=== PATIENT | female | born 1995 | race Caucasian/White ===

== ENCOUNTER 2019-04-28 05:43 | Emergency (ER) | payer OTHER ==
[~2019-04-28] VITALS: Ht 157.5 cm; Wt 57.7 kg
[2019-04-28] MEDS ORDERED: LEVOTAB19 PO (05:50)
[2019-04-28 06:18] LABS: BASO % 0.3 % (0.0-1.0); EOS % 0.3 % (0.0-3.0); HEMATOCRIT 43.7 % (36.0-47.0); HEMOGLOBIN 14.4 g/dl (12.0-15.5); LYMPH # 1.1 10^3/uL (1.5-5.0); LYMPH % 6.9 % (24.0-44.0); MEAN CORPUSCULAR HEMOGLOBIN 28.5 pg (27.0-33.0); MEAN CORPUSCULAR VOLUME 86.4 fl (80.0-96.0); MONO % 6.6 % (0.0-5.0); NEUTROPHILS # 13.2 10^3/uL (1.5-8.5); NEUTROPHILS % 85.5 % (36.0-66.0); PLATELET COUNT, AUTOMATED 247 10^3/uL (150-450); RED BLOOD COUNT 5.06 10^6/uL (4.00-5.40); WHITE BLOOD COUNT 15.4 10^3/uL (4.0-10.0)
[2019-04-28] MEDS ORDERED: METOCLOPRAMIDE INJ 10MG/2ML VIAL (J2765) IV ONE (06:30)
[2019-04-28] MEDS ORDERED: MORPHINE 4 MG/ML 1ML VIAL/SYRINGE (J2270) IV ONE (06:30)
[2019-04-28] MEDS ORDERED: NS 1,000 ML IV ONE (06:30)
[2019-04-28 06:50] LABS: ALT/SGPT 51 U/L (12-78); BILIRUBIN,DIRECT 0.1 MG/DL (0.0-0.2); BILIRUBIN,TOTAL 0.3 MG/DL (0.2-1.0); LIPASE 121 U/L (73-393); TOTAL PROTEIN 7.1 GM/DL (6.4-8.2)
[2019-04-28 06:56] LABS: HCG, SERUM QUALITATIVE NEGATIVE (NEGATIVE)
--- NOTE | 2019-04-28 07:43 | REPVR ---
PROCEDURE INFORMATION: Exam: US Abdomen Limited, Right Upper Quadrant Exam date and time: 04/28/2019 7:26 AM Age: 23 years old Clinical indication: Abdominal pain; Flank; Right upper quadrant (ruq); Additional info: Biliary/gb eval TECHNIQUE: Imaging protocol: Real-time ultrasound of the abdomen with image documentation. Examination was focused on the right upper quadrant. COMPARISON: No relevant prior studies available. FINDINGS: Liver: The liver appears normal. Gallbladder: The gallbladder appears normal with a normal wall thickness of 1.5 mm. A small junctional mucosal fold normal variant is seen at the neck of the gallbladder. Common bile duct: The bile ducts are normal. The common bile duct measures 3 mm in diameter. Pancreas: The pancreas appears within normal limits. Right kidney: The right kidney appears normal measuring 10.2 x 5.5 x 4.3 cm. Intraperitoneal space: No free fluid seen within the right upper quadrant abdomen. IMPRESSION: 1. The liver appears normal. 2. The gallbladder appears normal with a normal wall thickness of 1.5 mm. A small junctional mucosal fold normal variant is seen at the neck of the gallbladder. 3. The bile ducts are normal. The common bile duct measures 3 mm in diameter. Electronically signed by: Hansel Sosa On 04/28/2019 07:42:47 AM
[2019-04-28] MEDS ORDERED: ISOVUE-370 76% 100ML VIAL (Q9967) As Ordered ONE (08:14)
[2019-04-28] MEDS: GASTROGRAFIN SOLUTION 30ML PO SCH ×2 (08:50→09:20)
[2019-04-28] MEDS ORDERED: ONDANSETRON 4MG/2ML VIAL (J2405) IV ONE (09:00)
--- NOTE | 2019-04-28 11:13 | REP ---
CT abdomen and pelvis with IV and oral contrast: History: Appendicitis. CT contrast dose: 100 mL of intravenous Isovue [address] findings: Digital preliminary business lawyer radiograph is unremarkable. Nonspecific large and small bowel gas pattern question mild ileus. The lung bases are clear on axial CT images. The liver and the spleen are normal in size and homogeneous in texture. The gallbladder is unremarkable. No abnormality is noted in the pancreas. Normal adrenal glands are seen bilaterally. The kidneys enhance symmetrically and are morphologically intact. The left renal artery is duplicated. No retroperitoneal mass or adenopathy is seen. Small and large bowel loops appear morphologically intact in the upper abdomen. Pelvic CT images demonstrate a normal non-inflamed appendix in the right lower quadrant just medial to the cecum. The uterus is tipped to the right and there is a septated appearing cystic lesion in the left adnexa measuring up to 8 cm in greatest dimension by 6 cm by 6 cm. There appears to be a small amount of adjacent cul-de-sac fluid. Urinary bladder is empty but intact in appearance. No abdominal wall defect is seen. Bone window settings show no bony destructive lesion. Impression: 8 cm cystic lesion left ovary. Normal appendix. No other abnormality. Electronically Signed by Pedro Irving MD 04/28/2019 02:30 P
[2019-04-28 11:21] VITALS: BP 116/72
--- NOTE | 2019-04-29 10:55 | ED PDOC ---
Post-Departure Follow-Up ft be[facility] faxed formal report of ct abd/p for fu Kg Douglass MD Apr 29, 2019 10:55
== END 2019-04-28 11:35 | disposition home or self-care (01) ==
LOC: M ED 05:43
DX: R10.11 Right upper quadrant pain (principal); N83.202 Unspecified ovarian cyst, left side; R11.10 Vomiting, unspecified; Z88.0 Allergy status to penicillin; Z79.3 Long term (current) use of hormonal contraceptives
CPT/HCPCS: 36415; 74177; 76705; 80047; 80076; 81001; 83690; 84702; 84703; 85025; 96361; 96374; 96375; 99284; J2270; J2405; J2765; Q9963; Q9967

== ENCOUNTER → 2019-05-18 | Outpatient (CLI) | payer OTHER ==
[~2019-05-18] MED LIST: LEVOTAB19 PO
--- NOTE | 2019-05-18 09:47 | REP ---
Clinical: Left lower quadrant pain. Technique: Transabdominal pelvic ultrasound followed by transvaginal examination for better evaluation of the endometrium and adnexa with color Doppler evaluation of the ovaries. Findings: Bladder is unremarkable and measures 7.5 x 2.5 x 4.2 cm. Normal anteverted uterus measures 7.0 x 3.0 x 3.9 cm . The endometrial complex measures 4.0 mm thickness. No discrete uterine or endometrial abnormalities are appreciated. Bilateral ovaries are normal in appearance and vascularity without evidence for torsion. Right ovary measures 2.9 x 1.6 x 2.3 cm ; R I = 0.35 . Left ovary measures a 0.4 x 1.8 x 2.4 cm with 1.5 cm physiologic cyst / follicle ; R I = 0.55 . No pelvic fluid or adnexal mass lesion . Impression: 1. Essentially normal pelvic ultrasound. 2. 1.5 cm left ovarian cyst likely physiologic/dominant follicle. Electronically Signed by Sathish Brar MD 05/18/2019 09:38 A
== END ==
LOC: M RAD 08:47
PROVIDERS: ATTEND Obstetrics & Gynecology
DX: R10.32 Left lower quadrant pain (principal); N83.202 Unspecified ovarian cyst, left side

== ENCOUNTER 2019-10-26 08:41 | Day surgery (SDC) | payer OTHER ==
[~2019-10-26] VITALS: Ht 157.5 cm; Wt 59.9 kg
[~2019-10-26 08:41] MED LIST changes: +ALBU8.5H
[2019-10-26] MEDS ORDERED: KETOROLAC 60MG 2ML VIAL As Ordered ONE (09:10)
[2019-10-26] MEDS ORDERED: dexameTHASONE 4 MG/ML 1ML VIAL (J1100 PER 1MG) As Ordered ONE (09:10)
[2019-10-26] MEDS ORDERED: MIDAZOLAM INJ 2MG/2ML VIAL (J2250 PER 1MG) As Ordered ONE (09:10)
[2019-10-26] MEDS ORDERED: propofoL 200 MG/20 ML VIAL As Ordered ONE (09:10)
[2019-10-26] MEDS ORDERED: ONDANSETRON 4MG/2ML VIAL As Ordered ONE (09:10)
[2019-10-26] MEDS ORDERED: LIDOCAINE 2% 100MG/5ML SDV (FOR ANES.) As Ordered ONE (09:10)
[2019-10-26] MEDS ORDERED: fentaNYL 100 MCG/2 ML INJECTION (J3010) As Ordered ONE (09:11)
[2019-10-26] MEDS ORDERED: LR 1,000 ML IV ONE (09:30)
[2019-10-26 09:35] LABS: HEMATOCRIT 38.3 % (36.0-47.0); HEMOGLOBIN 12.9 g/dl (12.0-15.5); MEAN CORPUSCULAR HEMOGLOBIN 29.1 pg (27.0-33.0); MEAN CORPUSCULAR HGB CONC 33.7 g/dl (32.0-36.5); MEAN CORPUSCULAR VOLUME 86.3 fl (80.0-96.0); PLATELET COUNT, AUTOMATED 220 10^3/uL (150-450); RED BLOOD COUNT 4.44 10^6/uL (4.00-5.40); WHITE BLOOD COUNT 8.7 10^3/uL (4.0-10.0)
[2019-10-26 09:42] LABS: BLOOD UREA NITROGEN 10 MG/DL (7-18); CALCIUM LEVEL 9.3 MG/DL (8.5-10.1); CARBON DIOXIDE LEVEL 27 MEQ/L (21-32); CHLORIDE LEVEL 108 MEQ/L (98-107); CREATININE FOR GFR 0.76 MG/DL (0.55-1.30); GLOMERULAR FILTRATION RATE > 60.0 (>60); GLUCOSE, FASTING 85 MG/DL (70-100); HCG, SERUM QUANTITATIVE < 1.0 MIU/ML; POTASSIUM SERUM 4.3 MEQ/L (3.5-5.1); SODIUM LEVEL 141 MEQ/L (136-145)
[2019-10-26] MEDS ORDERED: ACETAMINOPHEN 650 MG SUPP As Ordered ONE (12:11)
[2019-10-26] MEDS ORDERED: ePHEDrine SULFATE 25 MG/5 ML(5MG/ML) SYRINGE As Ordered ONE (12:43)
[2019-10-26] MEDS ORDERED: SILVER NITRATE APPLICATOR As Ordered ONE (12:53)
[2019-10-26] MEDS ORDERED: fentaNYL 100 MCG/2 ML INJECTION (J3010) IV PRN (13:30)
[2019-10-26] MEDS ORDERED: LR 1,000 ML IV SCH (13:30)
[2019-10-26] MEDS ORDERED: ONDANSETRON 4MG/2ML VIAL IV PRN (13:30)
--- NOTE | 2019-10-26 13:41 | ROOPDOC ---
[facility] Report Of Operation Report of Operation DATE OF PROCEDURE: 10/26/19 PREPROCEDURE DIAGNOSES: abnormal uterine bleeding, cervical stenosis POSTPROCEDURE DIAGNOSES: same PROCEDURE: dilation and curettage, diagnostic hysteroscopy SURGEON: Esteban Bobo DO [place]: Bryan Marcano MD ANESTHESIA: general ESTIMATED BLOOD LOSS: Approximately <5 mL. COMPLICATIONS: none REMARKS: none PROCEDURE NOTE: The risks, benefits, and alternatives of the procedure were discussed and consent was obtained. The patient was taken to the OR where she was placed under general anesthesia in low lithotomy position with her arms out. The vagina and perineum were prepped and draped in a sterile fashion and the bladder was drained. A final time out was performed. A weighted speculum was placed in the vagina and the anterior lip of the cervix was grasped with a single tooth tenaculum. The cervix was dilated to 14F with hanks dilators. The 5mm hysteroscope was then introduced to the fundus. The endometrium was globally atrophic, the bilateral ostea were visualized, there were no lesions or polyps. The hysteroscope was removed and a curette was used to obtain endometrial curettings until 360 deg cry was appreciated. The tenaculum was removed and the puncture sites were hemostatic. The speculum was removed. A vaginal sweep was performed. The sponge lap, and needle counts were correct x2. The patient tolerated the procedure well and was taken to the PACU in stable condition. There were no complications. ESTEBAN BOBO DO Oct 26, 2019 13:41
[2019-10-26 14:10] VITALS: BP 113/70
== END 2019-10-26 14:14 | disposition home or self-care (01) ==
LOC: M SDC 08:41
PROVIDERS: ATTEND Obstetrics & Gynecology
DX: N93.9 Abnormal uterine and vaginal bleeding, unspecified (principal); Z12.4 Encounter for screening for malignant neoplasm of cervix; N88.2 Stricture and stenosis of cervix uteri; J45.909 Unspecified asthma, uncomplicated; Z88.0 Allergy status to penicillin
CPT/HCPCS: 36415; 58558; 80048; 84702; 85027; 88305; G0123; J1100; J1885; J2250; J2405; J3010

== ENCOUNTER 2020-02-12 07:23 | Emergency (ER) | payer OTHER ==
[~2020-02-12] VITALS: Ht 157.5 cm; Wt 61.7 kg
[2020-02-12 07:24] VITALS: BP_DIAS 84
[2020-02-12 09:03] LABS: BASO % 0.4 % (0.0-1.0); EOS % 0.1 % (0.0-3.0); HEMATOCRIT 39.6 % (36.0-47.0); HEMOGLOBIN 13.1 g/dl (12.0-15.5); LYMPH # 1.4 10^3/uL (1.5-5.0); LYMPH % 16.1 % (24.0-44.0); MEAN CORPUSCULAR HEMOGLOBIN 28.2 pg (27.0-33.0); MEAN CORPUSCULAR HGB CONC 33.1 g/dl (32.0-36.5); MEAN CORPUSCULAR VOLUME 85.3 fl (80.0-96.0); MONO # 0.6 10^3/uL (0.0-0.8); MONO % 7.5 % (0.0-5.0); NEUTROPHILS # 6.4 10^3/uL (1.5-8.5); NEUTROPHILS % 75.4 % (36.0-66.0); PLATELET COUNT, AUTOMATED 225 10^3/uL (150-450); RED BLOOD COUNT 4.64 10^6/uL (4.00-5.40); WHITE BLOOD COUNT 8.5 10^3/uL (4.0-10.0)
[2020-02-12 09:09] LABS: APPEARANCE, URINE HAZY (CLEAR); BACTERIA, URINE AUTO 1+ (NEGATIVE); BILIRUBIN, URINE AUTO NEGATIVE (NEGATIVE); BLOOD, URINE BLOOD NEGATIVE (NEGATIVE); COLOR, URINE YELLOW (YELLOW); GLUCOSE, URINE (UA) AUTO NEGATIVE (NEGATIVE); KETONE, URINE AUTO 1+ mg/dL (NEGATIVE); LEUKOCYTE ESTERASE, URINE AUTO 1+ (NEGATIVE); MUCUS, URINE MODERATE (NEGATIVE); NITRITE, URINE AUTO NEGATIVE (NEGATIVE); PROTEIN, URINE AUTO 1+ mg/dL (NEGATIVE); RBC, URINE AUTO 1 /HPF (0-3); SPECIFIC GRAVITY URINE AUTO 1.026 (1.002-1.035); SQUAMOUS EPITHELIAL CELL UR AU 5 /HPF (0-6); UROBILINOGEN, URINE AUTO 0.2 mg/dL (0.0-2.0); WBC, URINE AUTO 3 /HPF (0-3)
[2020-02-12 09:23] LABS: BLOOD UREA NITROGEN 8 MG/DL (7-18); CALCIUM LEVEL 8.9 MG/DL (8.5-10.1); CARBON DIOXIDE LEVEL 27 MEQ/L (21-32); CHLORIDE LEVEL 107 MEQ/L (98-107); GLOMERULAR FILTRATION RATE > 60.0 (>60); GLUCOSE, FASTING 80 MG/DL (70-100); POTASSIUM SERUM 4.2 MEQ/L (3.5-5.1); SODIUM LEVEL 141 MEQ/L (136-145)
[2020-02-12 09:25] LABS: INR 1.06
[2020-02-12 09:26] LABS: PARTIAL THROMBOPLASTIN TIME 32.2 SECONDS (24.2-38.5)
--- NOTE | 2020-02-12 09:37 | REP ---
INDICATION: trauma, cramping, 14 weeks COMPARISON: None. TECHNIQUE: Transabdominal obstetrical ultrasound with color Doppler evaluation. FINDINGS: Examination demonstrates a single live early intrauterine in variable presentation. motion is identified by technologist. Placenta is noted posterior and grade 0 without evidence for placenta previa or abruption. Amniotic fluid volume is normal. Cervix measures 6.5 cm in length and appears closed. Gestational age by LMP 14 weeks 3 days with ETIENNE 08/09/2020. FHR equals 170 beats per minute. IMPRESSION: Single live in variable presentation. Amniotic fluid volume is normal. Cervix appears closed. <Electronically signed by Sathish Brar > 02/12/20 [id number]
[2020-02-12 10:16] VITALS: BP_SYST 119
== END 2020-02-12 10:17 | disposition home or self-care (01) ==
LOC: M ED 07:23
DX: O9A.212 Injury, poisoning and certain other consequences of external causes complicating pregnancy, second trimester (principal); R10.9 Unspecified abdominal pain; W00.0XXA Fall on same level due to ice and snow, initial encounter; Y92.018 Other place in single-family (private) house as the place of occurrence of the external cause; Z3A.14 14 weeks gestation of pregnancy